=== PATIENT | female | born 1965 | race American Indian/Alaskan Native ===

== ENCOUNTER 2017-04-11 15:52 | Outpatient (CLI) | payer OTHER ==
--- NOTE | 2017-04-11 16:39 | XRay Report ---
Bilateral hand 3 views: History: Hand pain. Findings: No articular abnormality. No fracture or dislocation. No periosteal reaction or soft tissue calcification. Impression: No definite bony or articular abnormality right and left hand. Mild arthritic changes if present cannot be excluded.
== END 2017-04-11 15:53 | disposition home or self-care (01) ==
LOC: XRAY 15:52
PROVIDERS: ATTEND Internal Medicine Rheumatology
DX: M79.641 Pain in right hand (principal); M79.642 Pain in left hand